=== PATIENT | female | born 1985 | race Caucasian/White ===

== ENCOUNTER 2017-02-21 00:08 | Inpatient (IN) | payer BC ==
[~2017-02-21 00:08] MED LIST: Acetaminophen 325 MG Tab PO PRN; Carboprost Tromethamine 250 MCG/1 ML Amp IM PRN; Lactated Ringers 500 ML IV ONE; Lidocaine 1% 30 ML SDV INJECT PRN; Methylergonovine 0.2 MG/1 ML Amp IM PRN; Misoprostol 400 MCG (4 X 100 MCG TAB) RECTAL PRN; Sodium Chloride 0.9% 10 ML Syringe FLUSH PRN
[2017-02-21] MEDS: Misoprostol 25 MCG (1/4 of 100 MCG) Tab VAG PRN ×2 (01:25→05:36)
[2017-02-21] MEDS: Ondansetron 4 MG/2 ML SDV IV PRN ×2 (14:00→18:22)
[2017-02-21] MEDS ORDERED: fentaNYL 100 MCG/2 ML SDV ONE ×2 (14:11→18:31)
[2017-02-21] MEDS: Lactated Ringers 1,000 ML IV SCH ×2 (14:44→17:50)
--- NOTE | 2017-02-21 14:57 | PCM.PRNOTE ---
- Free Text/Narrative Note: Requested to provide analgesia to full term patient in severe pain. Upon entering the room, patient is lying on back complaining of severe abdominal pain and discomfort. Procedure was discussed with patient including adverse outcomes and expectations. Pt consented to analgesia, SAB/IT. Pt placed into a sitting position. Landmarks for SAB/IT were identified and marked. Back was prepped with betadine x3. A sterile, transparent, fenestrated drape was applied. Excess betadine was removed. Using 3 mL of a 1% lidocaine solution, a skin wheel was placed at the L3/L4 interspace. A 24 ga (4 inch) Pencan spinal needle was inserted until positive for CSF. Negative for heme or paresthesias. Injected fentanyl 20 mcg, sufentanil 10 mcg, and 11.25 mg of a 0.75% bupivacaine solution with an epi wash. Pt was placed left lateral position for approximately 20 minutes. There were zero complications or adverse outcomes. Will continue to monitor.
--- NOTE | 2017-02-21 14:58 | PN ---
DATE: 02/21/2017 SUBJECTIVE: The patient's contractions are getting stronger. OBJECTIVE: heart tones in the 130s felt to be reactive and reassuring. Tocometer reveals contractions every 2 to 3 minutes. Vaginal exam reveals to be 5 cm, 75% effaced, -1 station, vertex suspected, and continued vaginal leaking is noted of clear fluid. ASSESSMENT AND PLAN: Intrauterine at 40 weeks, confirmed at 18 and 2/7 week ultrasound with gestational hypertension. No signs or symptoms of severe preeclampsia. Group B streptococcus negative. Rh negative. G3, P2-0-0- 2, now status post Cytotec x2, artificial rupture of membranes with continued cervical change. We will follow clinically and closely. [facility] /[id number]
[2017-02-21] MEDS: Oxytocin/Normal Saline 30 UNIT/500 ML BAG IV SCH ×2 (15:06→22:00)
--- NOTE | 2017-02-21 19:14 | PCM.PRNOTE ---
- Free Text/Narrative Note: Requested to provide analgesia to full term patient in severe pain. Upon entering the room, patient is standing, complaining of severe abdominal pain and discomfort. Procedure was discussed with patient including adverse outcomes and expectations. Pt consented to analgesia, SAB/IT. Pt placed into a sitting position. Landmarks for SAB/IT were identified and marked. Back was prepped with betadine x3. A sterile, transparent, fenestrated drape was applied. Excess betadine was removed. Using 4 mL of a 1% lidocaine solution, a skin wheel was placed at the L3/L4 interspace. A 24 ga (4 inch) Pencan spinal needle was inserted until positive for CSF. Negative for heme or paresthesias. Injected fentanyl 20 mcg, sufentanil 10 mcg, and 12 mg of a 0.75% bupivacaine solution with an epi wash. Pt was placed left lateral position for approximately 20 minutes. There were zero complications or adverse outcomes. Will continue to monitor.
[2017-02-21] MEDS ORDERED: Benzocaine/Menthol 20%-0.5% Spray 56 GM Canister TOP PRN (20:30)
[2017-02-21] MEDS ORDERED: Simethicone 80 MG Tab.Chew PO PRN (20:30)
[2017-02-21] MEDS ORDERED: Sodium Chloride 0.9% 10 ML Syringe FLUSH PRN (20:30)
[2017-02-21] MEDS ORDERED: Zolpidem 5 MG Tab PO PRN (20:30)
[2017-02-21] MEDS ORDERED: Oxytocin 10 Units/1 ML SDV IM PRN (20:30)
[2017-02-21] MEDS: Ibuprofen 800 MG Tab PO PRN (23:48)
[2017-02-21] MEDS: cefTRIAXone 1 GM in Sodium Chloride 0.9% 50 ML IV SCH (23:49)
[2017-02-22] MEDS: Prenatal Multivitamin with Calcium/Folic Acid/Iron Tab PO SCH (08:14)
[2017-02-22] MEDS: Ibuprofen 800 MG Tab PO PRN ×2 (08:14→16:20)
[2017-02-22] MEDS: Ferrous Sulfate 325 MG Tab PO SCH (08:14)
[2017-02-22] MEDS: Docusate Sodium 100 MG Cap PO PRN (08:15)
--- NOTE | 2017-02-22 09:03 | PN ---
DATE: 02/21/2017 SUBJECTIVE: The patient is now status post intrathecal and is comfortable. Pitocin was started as she had protracted disorder of dilation. OBJECTIVE: heart tones baseline around the 120s to 130s range, felt to be reassuring. Tocometer is unable to detect contractions, unsure if she is having any. The patient does not feel any. Vaginal exam reveals to be 6 cm, 75% effaced, 0 to -1 station. Vertex suspected. An IUPC placed after discussion with the patient. ASSESSMENT AND PLAN: Intrauterine at 40 weeks, confirmed with 18-and- 2/7-week ultrasound, complicated by gestational hypertension. Group B streptococcus negative. Rh negative. G3, P2-0-0-2. Protracted disorder dilation, now status post Cytotec x2, artificial rupture of membranes, Pitocin augmentation, and with IUPC placed as above. We will continue to follow clinically and closely. Attempt to obtain adequate MVUs and follow maternal status. [facility] /[id number]
--- NOTE | 2017-02-22 10:57 | OBOUT ---
DATE: 02/21/2017 DATE AND TIME OF NST: Date: 02/21/2017. Time: 0950 hours 1010 hours. REASON FOR NST: 1. Intrauterine at 40 weeks confirmed with 18 and 2/7 week ultrasound. 2. Gestational hypertension. 3. Group B strep negative. 4. Rh negative. 5. G3, P2-0-0-2. NST INTERPRETATION: During this time period, heart tone baseline is approximately 130 to 135, and three are at least two 15 x 15 beat per minute accelerations, making this strip reactive. It is also noted to be reassuring. Tocometer reveals potential 4 to 5 contractions felt by patient minimally. ASSESSMENT: 1. Nonstress test-reactive and reassuring. 2. Tocometer with contractions. At current time of dictation, the patient has now received 2 doses of Cytotec. Her blood pressures have not been consistently in the severe range. She denies any headaches, visual changes, or upper abdominal pain. Her labs did not reveal any thrombocytopenia, therefore, we are going to continue with the induction. Approximately 1033 to 1034 hours, I evaluated the patient, she was found to be 4 cm, 75% effaced, 0 to -1 station, vertex suspected, artificial rupture membranes done after discussion with the patient, yielding copious amounts of clear fluid. ASSESSMENT AND PLAN: Intrauterine at 40 weeks confirmed with 18 and 2/7 week ultrasound with gestational hypertension. No signs or symptoms of severe preeclampsia, group B streptococcus negative, Rh negative, G3, P2-0-0-2. We will proceed with continued augmentation if need be. Artificial rupture of membranes done. I did discuss potential for Pitocin in the future. The patient understands and agrees with the above treatment and plan. [facility] /[id number]
--- NOTE | 2017-02-22 13:24 | PN ---
DATE: 02/22/2017 day #1. SUBJECTIVE: The patient is tolerating p.o., ambulating, urinating, passing flatus, doing well. No immediate concerns are noted. OBJECTIVE: Vital Signs: Temperature 98.2, heart rate 99, blood pressure 110/67, respiratory rate 16. Lungs: Clear to auscultation bilaterally. Heart: S1 and S2. Regular rate and rhythm. Abdomen: Firm uterus at approximately the umbilicus. Extremities: Trace pedal edema. No calf pain. LABORATORY DATA: White cell count 17, hemoglobin 9.7, platelets 204, with predelivery hemoglobin being 11.5, white cell count being 11.2. ASSESSMENT AND PLAN: 1. day #1, status post spontaneous vaginal delivery, secondary perineal laceration-repaired, as well as prolonged third stage of labor with retained placenta, requiring bimanual exam with finger uterine curettage for removal of placenta and placental membranes. She also had EBL of 1000 mL with hemorrhage and uterine atony, requiring Methergine, Hemabate, Cytotec, and bimanual massage. 2. Anemia of acute blood loss. Hemoglobin down to 9.7. The patient is asymptomatic. We will follow closely. Iron has been started. We will repeat CBC tomorrow. The patient understands and agrees with the above treatment plan. [facility] /[id number]
[2017-02-22] MEDS ORDERED: fentaNYL 100 MCG/2 ML SDV ITHECAL ONE (14:39)
[2017-02-22] MEDS: cefTRIAXone 1 GM in Sodium Chloride 0.9% 50 ML IV SCH (22:24)
[2017-02-23] MEDS: Docusate Sodium 100 MG Cap PO PRN (07:33)
[2017-02-23] MEDS: Prenatal Multivitamin with Calcium/Folic Acid/Iron Tab PO SCH ×2 (07:33→09:21)
[2017-02-23] MEDS: Ferrous Sulfate 325 MG Tab PO SCH (07:33)
[2017-02-23] MEDS: Ibuprofen 800 MG Tab PO PRN (07:33)
--- NOTE | 2017-02-23 08:26 | DEL ---
DATE: 02/21/2017 PREOPERATIVE DIAGNOSES: 1. Intrauterine 40 weeks, confirmed by 18 and 2/7 week ultrasound. 2. Gestational hypertension. 3. Group B Streptococcus negative. 4. Rh negative. 5. G3, P2-0-0-2. POSTOPERATIVE DIAGNOSES: 1. EBL with hemorrhage of 1000 mL. 2. Uterine atony, requiring Methergine, Hemabate and Cytotec as well as bimanual massage, and removal of placenta. 3. Prolonged third stage of labor. 4. Retained placenta, requiring removal. 5. Retained placental membranes, requiring removal. PROCEDURE PERFORMED: Cytotec x2, artificial rupture membranes, NST, Pitocin augmentation, IUPC, and then subsequently spontaneous vaginal delivery with second-degree perineal laceration, repaired, and bimanual exam with finger uterine curettage, and removal of placenta and placental membranes. ANESTHESIA/ANALGESIA: the patient did receive 2 intrathecal's in the first stage of labor. ESTIMATED BLOOD LOSS: 1000 mL. FINDINGS: Female, scores pending, weight 7 pounds 4 ounce (3280 g), prolonged third stage of labor with retained placenta, and membranes requiring bimanual exam and finger uterine curettage with removal of placenta and placental membranes. SUMMARY OF EVENTS: The patient is a 31-year-old, G3, P2-0-0-2, intrauterine at 40 weeks, confirmed by 18 and 2/7 week ultrasound, admitted on the above date with above diagnosis and underwent the above procedure notes. She received 2 intrathecal's during the first stage of labor. I was called to the room after she was pushing after found to be complete. Upon my arrival to the room, baby was nearly . I donned in sterile gown and gloves. With the patient pushing with contractions, vertex was delivered in LESLIE presentation followed by rest of the without difficulty. Mouth and nares were suctioned. Cord was doubly clamped and cut and was resuscitated on mother's abdomen. Then, approximately 10 mL of cord blood was obtained for labs. Placenta then was attempted to be delivered with gentle cord traction and fundal massage. At approximately 20 minutes after delivery, LISANDRA Ochoa was called to be present for possible anesthesia. Arnaud velazcotte was called for, as well as Methergine, Hemabate, and Cytotec to be in the room. At that point in time, EBL was around 250 mL and minimal. The patient was followed closely and after prolonged third stage of labor was diagnosed, and LISANDRA Ochoa was present, procedure ensued. Prior to this risks, benefits, alternatives, complications of the procedure were discussed with her and her male partner. Verbal and written consent obtained, and questions were answered. Once Bill was present, bimanual exam was then done with a new set of sterile gloves with KY jelly on the gloves. Subsequently, bimanual exam was done with finger uterine curettage to remove the retained placenta. This was subsequently removed and fundal massage ensued thereafter, despite this bleeding was still noted to be significant. Three more passes with bimanual exam, finger curettage was done and placental membrane fragments were noted and removed. Methergine, Hemabate, and Cytotec were then called for and given. Methergine and Hemabate were given IM, and Cytotec was given rectally 800 mcg. Despite this, there was still continued bleeding. Another bimanual exam was done with new set of sterile gloves and fundus became more firm with this, thereafter after bimanual exam was done, bleeding decreased significantly and fundal massage continued. Pitocin was given at 999 per hour, and then decreased to protocol, Pitocin. Prior to diagnosis of prolonged third stage of labor while waiting for WORKPLACE TRAINER AND ASSESSOR to present, a second-degree perineal laceration was anesthetized with 1% lidocaine, approximately 5 mL and this was repaired in the usual fashion using 3-0 Vicryl. Perineum, vagina, perirectal areas were examined without any other tears or lacerations. Mother and infant are currently stable at the time of dictation. Due to the amount of bleeding, CBC will be drawn at 02:00 this morning, and patient will be followed closely. Plans were discussed with the patient. I did discuss with her potential need for blood transfusion, risks, benefits, alternatives, complications of this were discussed. Verbal and written consent were obtained. We will determine need based on symptoms, vitals, continued evaluations, and labs. [facility] /[id number] [place]
--- NOTE | 2017-02-24 09:42 | DISCH ---
ADMISSION DIAGNOSES: 1. Intrauterine at 40 weeks, confirmed with 18 and 2/7 week ultrasound. 2. Gestational hypertension. 3. Group B streptococcus negative. 4. Rhesus negative. 5. G3, P2-0-0-2. DISCHARGE DIAGNOSES: 1. Intrauterine at 40 weeks, confirmed with 18 and 2/7 week ultrasound-delivered 2. Gestational hypertension. 3. Group B streptococcus negative. 4. Rhesus negative. 5. G3, P2-0-0-2. 6. hemorrhage with an EBL of 1000 mL. 7. Uterine atony, requiring Methergine, Hemabate, Cytotec, and bimanual exam. 8. Prolonged third stage of labor. 9. Retained placenta, requiring removal. 10.Retained placental membranes, requiring removal. 11.Anemia of acute blood loss. Hemoglobin dropping down to 9.2 compared to predelivery hemoglobin of 11.5. PROCEDURES PERFORMED: Cytotec x2; artificial rupture of membranes; nonstress test; Pitocin; intrauterine pressure catheter; spontaneous vaginal delivery, secondary to perineal laceration repaired, as well as bimanual exam and finger uterine curettage for removal of placenta and placental membranes. HISTORY OF PRESENT ILLNESS: Please see H and P. SUMMARY OF HOSPITAL COURSE: The patient was admitted on the above date with the above diagnoses, had gestational hypertension. No signs or symptoms of severe preeclampsia. She underwent the above procedures, then went on to have spontaneous vaginal delivery, yielding a female with scores of 8 and 9, weighing 7 pounds 4 ounces (3280 g). Thereafter, she had a prolonged third stage of labor with the defined retained placenta as was over 30 minutes. SOCIAL STAFF WORKER was called in, and subsequently, she underwent a second-degree perineal laceration that was repaired in bimanual exam with finger uterine curettage and removal of placenta and placental membranes and had atony requiring Methergine, Hemabate, Cytotec, and bimanual exam with a hemorrhage with an EBL of 1000 mL. day #1, please see progress notes. day #2, date of discharge, the patient is tolerating p.o., ambulating, urinating, and passing flatus. PHYSICAL EXAMINATION: Vital Signs: The last set of vitals updated and listed in chart. Temperature 98.5, heart rate 86 to 100, blood pressure 110/67, and respiratory rate 18. Lungs: Clear to auscultation bilaterally. Heart: S1 and S2. Regular rate and rhythm. Abdomen: Firm uterus around the umbilicus. Extremities: Trace pedal edema. No calf pain. DISCHARGE LABORATORY DATA: White cell count 11.3, hemoglobin 9.2, and platelets 208. CONDITION ON DISCHARGE COMPARED TO CONDITION ON ADMISSION: Improved. DISCHARGE INSTRUCTIONS: 1. Diet as tolerated. 2. Activity: No lifting more than 20 pounds. No sit-ups, straining, and pelvic rest for the next 6 weeks with immediate return to fertility discussed with the patient. 3. Reasons to return or go to the emergency room were discussed with the patient in detail including, but not limited to, temperature greater than 100.4, foul-smelling discharge, red hot tender breasts, or increased vaginal bleeding. DISCHARGE MEDICATIONS: 1. Wjuu-hfa-eoroazu Tylenol or ibuprofen for pain. 2. vitamins daily for 6 weeks. 3. Iron sulfate 325 b.i.d. x6 weeks. The patient has these medicines at home and Colace 100 mg b.i.d. as needed. FOLLOWUP: Follow up in 6 weeks for evaluation. I did discuss the importance of followup and ramifications of not doing so as well as reasons to return or go to the emergency room in regard to her . [facility] /[id number]
== END 2017-02-23 10:15 | disposition home or self-care (01) | DRG 560 ==
LOC: DL.OB 00:08 → OBSVTOIN 19:20 → DL.OB 19:20 → EDSTATUS 02-24 15:40
PROVIDERS: ADMIT Family Medicine; ATTEND Family Medicine
PROC: 10E0XZZ Delivery of Products of Conception, External Approach (ICD-10-PCS; principal; 2017-02-21)
PROC: 3E0P7VZ Introduction of Hormone into Female Reproductive, Via Natural or Artificial Opening (ICD-10-PCS; 2017-02-21)
PROC: 10907ZC Drainage of Amniotic Fluid, Therapeutic from Products of Conception, Via Natural or Artificial Opening (ICD-10-PCS; 2017-02-21)
PROC: 0KQM0ZZ Repair Perineum Muscle, Open Approach (ICD-10-PCS; 2017-02-21)
PROC: 00HU33Z Insertion of Infusion Device into Spinal Canal, Percutaneous Approach (ICD-10-PCS; 2017-02-21)
PROC: 3E0R3BZ Introduction of Anesthetic Agent into Spinal Canal, Percutaneous Approach (ICD-10-PCS; 2017-02-21)
DX: O13.4 Gestational [pregnancy-induced] hypertension without significant proteinuria, complicating childbirth (principal); Z3A.40 40 weeks gestation of pregnancy; Z37.0 Single live birth; O72.2 Delayed and secondary postpartum hemorrhage; O63.9 Long labor, unspecified; O72.1 Other immediate postpartum hemorrhage; O70.1 Second degree perineal laceration during delivery; O90.81 Anemia of the puerperium; D62 Acute posthemorrhagic anemia
CPT/HCPCS: 36415; 59300; 59409; 85027; A9270-GY; J0696; J2210; J2405; J2590; J3010; J7050; J7120

== ENCOUNTER 2019-10-30 06:00 | Inpatient (IN) | payer OTHER ==
[~2019-10-30 06:00] MED LIST changes: +Citric Acid/Sodium Citrate Solution 30 ML Cup PO ONE; +Ibuprofen 800 MG Tab PO PRN; -Lactated Ringers 500 ML IV ONE; -Lidocaine 1% 30 ML SDV INJECT PRN; +Naloxone 2 MG/2 ML Syringe IVPUSH PRN; +Ondansetron 4 MG/2 ML SDV IVPUSH PRN; +Oxytocin/Normal Saline 30 UNIT/500 ML BAG IV SCH; -Sodium Chloride 0.9% 10 ML Syringe FLUSH PRN; +Tranexamic Acid 1,000 MG in Sodium Chloride 0.9% 100 ML IV PRN; +ceFAZolin 2 GM in Premix Bag 1 BAG IV ONE; +diphenhydrAMINE 50 MG/ML SDV IVPUSH PRN; +ePHEDrine 50 MG/ML SDV IVPUSH PRN
[2019-10-30] MEDS: Lactated Ringers 1,000 ML IV SCH ×4 (06:24→18:44)
[2019-10-30] MEDS ORDERED: Oxytocin/Normal Saline 60 UNIT/1,000 ML BAG ONE (06:30)
[2019-10-30] MEDS: Prenatal Multivitamin with Calcium/Folic Acid/Iron Tab PO SCH (10:06)
[2019-10-30] MEDS: Simethicone 80 MG Tab.Chew PO SCH ×4 (10:06→21:39)
[2019-10-30] MEDS ORDERED: Oxytocin/Normal Saline 30 UNIT/500 ML BAG IV ONE (11:59)
[2019-10-30] MEDS ORDERED: Ondansetron 4 MG/2 ML SDV IV ONE (13:09)
[2019-10-30] MEDS ORDERED: ePHEDrine 50 MG/ML SDV IV ONE (13:09)
[2019-10-30] MEDS ORDERED: Ketorolac 30 MG/ML SDV IVPUSH ONE (13:09)
[2019-10-30] MEDS ORDERED: Lactated Ringers 1,000 ML IV ONE (13:09)
[2019-10-30] MEDS ORDERED: Morphine PF 1 MG/ML Amp ONE (13:09)
[2019-10-30] MEDS ORDERED: Dexamethasone 4 MG/ML SDV IV ONE (13:09)
[2019-10-30] MEDS: Ketorolac 30 MG/ML SDV IVPUSH SCH ×2 (13:52→19:56)
--- NOTE | 2019-10-30 21:13 | OBOUT ---
DATE: 10/30/2019 TIME: 6:21 to 6:41. REASON FOR NST: 1. Intrauterine at 39 weeks by 12-2/7-week ultrasound. 2. Breech presentation, unstable lie. 3. Defers external cephalic version. 4. Request for primary low transverse for delivery. 5. GBS negative. 6. Gestational hypertension versus transient hypertension with elevated blood pressure upon admission of 142/84. 7. Rh negative status with RhoGAM given appropriately. 8. History of hemorrhage with last delivery with prolonged third stage of labor and retained placental membranes requiring bimanual exam complicated by uterine atony. 9. G4, P3-0-0-3. NST INTERPRETATION: During this time period, heart tone baseline is approximately 145 and at least two 15 x 15 beats per minute accelerations making this strip reactive as well as reassuring. Tocometer reveals no obvious evidence of contractions. Blood pressure 140/72 with a heart rate 94, recheck 142/84, temperature 98.4. ASSESSMENT: 1. Nonstress test, reactive and reassuring. 2. Tocometer without contractions. PLAN: Suspect gestational hypertension ensuing with blood pressures minimally elevated today, not in a severe feature range and we will proceed with delivery. Please see H and P done through [employer]. The patient had breech presentation in the last few weeks and continues to be in a breech presentation/unstable lie. Had ultrasound reconfirming this yesterday as well as Jesus's today suspected breech continued presentation. We will proceed to the OR as soon as crew is ready and available for primary low transverse . Please see H and P that was done through [employer] for this. Review of systems fully reviewed today and felt to be contributory for what was previously noted. She denies any headaches, visual changes, or upper abdominal pain. For this, records called for reviewed and supplemented by patient history. [facility] /[id number]
[2019-10-30] MEDS: Docusate Sodium 100 MG Cap PO PRN (21:39)
[2019-10-31] MEDS: Lactated Ringers 1,000 ML IV SCH ×2 (02:19→08:03)
[2019-10-31] MEDS: Ketorolac 30 MG/ML SDV IVPUSH SCH (02:21)
--- NOTE | 2019-10-31 08:22 | PN ---
DATE: 10/31/2019 Postoperative day #1 status post primary low transverse for breech presentation. SUBJECTIVE: The patient is tolerating p.o., has not ambulated. Mg is in place. Passing gas. OBJECTIVE: Vital Signs: Temperature 97.5, heart rate 73, blood pressure 115/64, respiratory rate 20. Lungs: Clear to auscultation bilaterally. Heart: S1, S2. Regular rate and rhythm. Firm uterus, -1 below umbilicus. Aquacel dressing dry and intact. RODY hose and SCDs are on. Mg is in place. LABORATORIES: Today, white cell count 10, hemoglobin 9.4, platelets 152,000. ASSESSMENT: 1. Postoperative day #1, status post primary low transverse with breech presentation. 2. Anemia of acute blood loss. Hemoglobin dropped from 10.8 to 9.4. PLAN: At this point in time, we will follow for symptoms and re-evaluate as needed. Otherwise, continue to follow clinically and closely. Plans were discussed with patient. She understands and agrees. [facility] /[id number]
[2019-10-31] MEDS: Prenatal Multivitamin with Calcium/Folic Acid/Iron Tab PO SCH (09:06)
[2019-10-31] MEDS: Simethicone 80 MG Tab.Chew PO SCH ×4 (09:06→20:36)
[2019-10-31] MEDS: Ferrous Sulfate 325 MG Tab PO SCH (09:06)
--- NOTE | 2019-10-31 10:39 | OR ---
DATE: 10/30/2019 PREOPERATIVE DIAGNOSES: 1. Intrauterine 39 weeks, by 12-2/7-week ultrasound. 2. Breech presentation/unstable lie. Confirmed with ultrasound. 3. Defers external cephalic version. 4. Requests for primary low-transverse for delivery. 5. Group B Streptococcus negative. 6. Gestational hypertension versus transient hypertension with elevated blood pressures, 140s over 80s, upon admission. 7. History of hemorrhage with past delivery, most likely due to atony requiring bimanual exam and removal of placental remnants. 8. Rh negative. 9. G4, P3-0-0-3. POSTOPERATIVE DIAGNOSES: 1. Intrauterine 39 weeks, by 12-2/7-week ultrasound. 2. Eleanor breech presentation noted with delivery. 3. Defers external cephalic version. 4. Requests for primary low-transverse for delivery. 5. Group B Streptococcus negative. 6. Gestational hypertension versus transient hypertension with elevated blood pressures, 140s over 80s, upon admission. 7. History of hemorrhage with past delivery, most likely due to atony requiring bimanual exam and removal of placental remnants. 8. Rh negative. 9. G4, P3-0-0-3. PROCEDURES PERFORMED: Nonstress test followed by primary low-transverse C- section with 2-layer uterine closure. INSPECTOR FLOOR: Elizabeth Conrad MD ANESTHESIA: Spinal. ESTIMATED BLOOD LOSS: 500 mL. IV FLUIDS: 300 mL of Pitocin and 1400 mL of lactated ringer. URINE OUTPUT: 75 mL and clear yellow. START: 8:07 UTERINE INCISION: 8:09 DELIVERY: 8:10 STOP: 8:35 FINDINGS: Female, score 7 and 8, eleanor breech presentation noted. DESCRIPTION OF PROCEDURE: After proper consent was obtained, the patient was brought to the operating room, where spinal anesthetic was administered. Mg was placed in the preop under sterile conditions. Abdomen was prepped and draped in normal sterile fashion with the patient placed in supine position with left lateral tilt. A skin incision was then made over lower abdomen in transverse Pfannenstiel-type fashion over previous area, where there was a demarcated line from the skin folds. This was carried down the fascia and scored in the midline. Subcutaneous tissue raked laterally with Lake retractor and fascial incision was extended in transverse fashion using curved Galvan's. Hill clamps x2 used to grasp the superior aspect fashion, rectus muscles dissected from the fascia using sharp and blunt technique. In a similar fashion, Hill clamps x2 were used to grasp the inferior portion of the incision. Rectus and pyramidalis muscles were dissected from fascia using sharp and blunt technique. Rectus muscles were in midline with blunt technique. Abdominal cavity was entered in blunt technique. Incision extended superiorly and inferiorly with blunt technique. Hilton O large retractor was then introduced and used. Vesicouterine peritoneum was identified, incised in transverse fashion with Metzenbaum scissors and bladder flap was made digitally. A curvilinear incision was made on the lower uterine segment. Uterus was entered sharply. Clear fluid returned. Uterine incision was then extended in a transverse fashion using blunt technique. breech was noted near the incision. This was manipulated and brought through the incision with back made anterior. This was delivered without difficulty followed by shoulders of the fetus without difficulty or requiring a manipulation and vertex followed shortly thereafter without any intervention needed. Mouth and nares were suctioned. Cord was doubly clamped and cut. Infant was brought over to the team. Then, approximately 10 mL of cord blood was obtained for labs. Placenta was then delivered with gentle cord traction and fundal massage. Uterine cavity was then cleared of all clots and debris with lap sponge. Obrien clamps were used to grasp the uterine incision. This was closed in a running locked fashion and tied at lateral margins with 1-0 Vicryl. Second imbricating layer was then applied and tied at lateral margins with 1-0 Vicryl. Bleeding right lateral portion of incision required a [id number]-[id number]-fuby stitch and then left of midline, there was another area of bleeding that required a figure- of-eight stitch. Thereafter, hemostasis was reassured. First inspection of the uterine incision revealed hemostasis. Hilton O retractor was then removed. Pericolic gutters were then cleared of all blood clots and debris with lap sponge. Anterior cul-de-sac was irrigated copiously and all blood clots removed. Second and final inspection of the uterine incision and anterior cul-de-sac revealed hemostasis. Rectus muscles were then reapproximated in midline with [id number]-[id number]-xjscz stitch of 1-0 Vicryl. Subfascial tissues were found to be hemostatic. Fascia was closed in running fashion and tied at lateral margin with 0 looped PDS. Subcutaneous tissue was irrigated copiously. Hemostasis was reassured. Skin was reapproximated with medium ousmane and sterile Aquacel dressing applied. Uterine fundus was firm and massaged at the conclusion of the case -1 below umbilicus. No immediate complications were noted. Sponge, lap, and needle counts correct. The patient received 2 g of Ancef preoperatively, Pitocin per protocol and will receive Toradol at conclusion of the case for pain control. Mother and infant are currently stable at the time of dictation. [facility] /[id number]
[2019-10-31] MEDS: Acetaminophen/oxyCODONE 325-5 MG Tab PO PRN ×3 (11:16→20:37)
[2019-10-31] MEDS: Docusate Sodium 100 MG Cap PO PRN ×2 (11:16→20:36)
[2019-10-31] MEDS: Ibuprofen 800 MG Tab PO PRN ×2 (11:16→20:38)
[2019-11-01] MEDS: Ibuprofen 800 MG Tab PO PRN ×3 (05:19→21:57)
[2019-11-01] MEDS: Acetaminophen/oxyCODONE 325-5 MG Tab PO PRN ×5 (05:20→21:57)
--- NOTE | 2019-11-01 08:19 | PN ---
DATE: 11/01/2019 SUBJECTIVE: The patient is tolerating p.o., was ambulating, urinating, passing flatus. OBJECTIVE: Vital Signs: Temperature 98.1, heart rate 82, blood pressure 137/79, respiratory rate 18. Lungs: Clear to auscultation bilaterally. Heart: S1, S2. Regular rate and rhythm. Abdomen: Firm uterus at the umbilicus. Aquacel dressing dry and intact. Extremities: Trace pedal edema. No calf pain. ASSESSMENT: 1. day #2, status post primary low-transverse for breech presentation. 2. Gestational hypertension suspected as she had some elevated blood pressures on 10/31/2019 as well as upon admission. The patient does not have any signs and symptoms of severe preeclampsia. We will continue to follow closely. PLAN: We will follow clinically and closely. Possible discharge tomorrow. Discussed with the patient. She understands and agrees with the above treatment plan. [facility] /[id number]
[2019-11-01] MEDS: Prenatal Multivitamin with Calcium/Folic Acid/Iron Tab PO SCH (09:37)
[2019-11-01] MEDS: Simethicone 80 MG Tab.Chew PO SCH ×4 (09:37→21:56)
[2019-11-01] MEDS: Ferrous Sulfate 325 MG Tab PO SCH (09:37)
[2019-11-01] MEDS: Docusate Sodium 100 MG Cap PO PRN ×2 (13:27→21:56)
[2019-11-01] MEDS: FLUoxetine 10 MG Cap PO SCH (15:28)
[2019-11-02] MEDS: Acetaminophen/oxyCODONE 325-5 MG Tab PO PRN ×2 (03:23→07:51)
[2019-11-02] MEDS: Ibuprofen 800 MG Tab PO PRN (05:56)
[2019-11-02] MEDS: Ferrous Sulfate 325 MG Tab PO SCH (07:50)
[2019-11-02] MEDS: Prenatal Multivitamin with Calcium/Folic Acid/Iron Tab PO SCH (09:36)
[2019-11-02] MEDS: Simethicone 80 MG Tab.Chew PO SCH (09:36)
[2019-11-02] MEDS: FLUoxetine 10 MG Cap PO SCH (09:37)
--- NOTE | 2019-11-02 23:19 | DISCH ---
ADMIT DIAGNOSES: 1. Intrauterine at 39 weeks, by 12-2/7-week ultrasound. 2. Breech presentation/unstable lie. 3. Defers external cephalic version. 4. Request for primary low-transverse for delivery. 5. Group B Streptococcus negative. 6. Gestational hypertension. 7. History of hemorrhage with last delivery requiring bimanual removal of placenta. 8. Rh negative. 9. G4, P3-0-0-3. DISCHARGE DIAGNOSES: 1. Intrauterine at 39 weeks, by 12-2/7-week ultrasound - delivered. 2. Breech presentation/unstable lie -. 3. Gilberto breech presentation noted with delivery. 4. Defers external cephalic version. 5. Request for primary low-transverse for delivery. 6. Group B Streptococcus negative. 7. Gestational hypertension. 8. History of hemorrhage with last delivery requiring bimanual removal of placenta. 9. Rh negative. 10.G4, P3-0-0-3. 11.Anemia, acute blood loss, hemoglobin dropping from 10.8 to 9.4. PROCEDURE PERFORMED: Nonstress test followed by primary low-transverse C- section with 2-layer uterine closure, performed by Dr. Nelson. HISTORY OF PRESENT ILLNESS: Please see H and P. HOSPITAL COURSE: The patient was admitted on the above date with the above diagnosis, underwent a primary low transverse under spinal, with an EBL of 500 mL, yielding a female, score 7 and 8, weighing 3000 g (6 pounds 10 ounces). Please see delivery note for further details. Gilberto breech presentation was noted. Postop day #1 and #2, please see progress note. Postop day #3, date of discharge, the patient was tolerating p.o., was ambulating, urinating, passing flatus, and requesting discharge. No headaches, visual changes, or upper abdominal pain. PHYSICAL EXAMINATION: Vital Signs: Temp 97.7, heart rate 76, blood pressure 117/76, respiratory rate 16. Lungs: Clear to auscultation bilaterally. Heart: S1, S2. Regular rate and rhythm. Abdomen: Firm uterus. -1 below umbilicus. Aquacel dressing dry and intact. Extremities: Trace pedal edema. No calf pains. Hemoglobin as noted above. CONDITION ON DISCHARGE COMPARED TO CONDITION ON ADMISSION: Improved. DISCHARGE INSTRUCTIONS: Diet: As tolerated. Activity: No lifting more than 20 pounds. No sit-ups or straining, and pelvic rest for the next 6 weeks with immediate return to fertility discussed with the patient. Reason to return or go to the emergency room was discussed with the patient in detail including but not limited to temperature greater than 100.4, foul- smelling discharge, red or tender breasts, or increased vaginal bleeding or increasing pain, drainage, or redness around the incision. DISCHARGE MEDICATIONS: 1. [id number] Tylenol or ibuprofen for pain. 2. Percocet 5/325, 1 to 2 q.6 hours p.r.n., #20, no refills. Discussed the use of these medications, adverse and unwanted effects, as well as continue on vitamins with iron. FOLLOWUP: 11/05/2019 for staple removal with baby appointment around the same time. I did discuss the importance of followup and ramifications of not doing so as well as reasons to go to the emergency room with regard to her infant. She understands and agrees. [facility] /[id number]
== END 2019-11-02 09:42 | disposition home or self-care (01) | DRG 787 ==
LOC: DL.MS 06:00 → EDSTATUS 08:00 → DL.MS 08:10 → OBSVTOIN 08:10
PROVIDERS: ADMIT Family Medicine; ATTEND Family Medicine
PROC: 10D00Z1 Extraction of Products of Conception, Low, Open Approach (ICD-10-PCS; principal; 2019-10-30)
PROC: 4A1HXCZ Monitoring of Products of Conception, Cardiac Rate, External Approach (ICD-10-PCS; 2019-10-30)
DX: O32.1XX0 Maternal care for breech presentation, not applicable or unspecified (principal); D62 Acute posthemorrhagic anemia; Z3A.39 39 weeks gestation of pregnancy; Z37.0 Single live birth; O13.4 Gestational [pregnancy-induced] hypertension without significant proteinuria, complicating childbirth; O99.02 Anemia complicating childbirth; Z90.89 Acquired absence of other organs; Z87.891 Personal history of nicotine dependence; O32.0XX0 Maternal care for unstable lie, not applicable or unspecified; Z20.828 Contact with and (suspected) exposure to other viral communicable diseases
CPT/HCPCS: 01961; 36415; 85027; 86850; 86900; 86901; A9270-GY; J0690; J1100; J1885; J2274; J2405; J2590; J7120; U0002